=== PATIENT | female | born 1955 | race Two or more races ===

== ENCOUNTER 2021-10-02 08:05 | Emergency (ER) | payer OTHER ==
[~2021-10-02] VITALS: Ht 160 cm; Wt 76.8 kg
[2021-10-02] MEDS ORDERED: LOSA50TA37 PO (08:38)
[2021-10-02] MEDS ORDERED: AMLO2.5T96 PO (08:38)
[2021-10-02] MEDS: LOSARTAN POTASSIUM 50 MG TABLET PO ONE (09:11)
[2021-10-02 09:33] LABS: CREATININE 9.06 mg/dL (0.60-1.30); POTASSIUM 4.2 mmol/L (3.5-5.1)
[2021-10-02 10:21] VITALS: BP 158/73
[2021-10-02] MEDS: AmLODIPine BESYLATE 5 MG TABLET PO ONE (10:25)
== END 2021-10-02 10:27 | disposition home or self-care (01) ==
LOC: EMS 08:06
DX: I12.0 Hypertensive chronic kidney disease with stage 5 chronic kidney disease or end stage renal disease (principal); E11.22 Type 2 diabetes mellitus with diabetic chronic kidney disease; N18.6 End stage renal disease; F41.9 Anxiety disorder, unspecified; Z99.2 Dependence on renal dialysis; Z79.899 Other long term (current) drug therapy
CPT/HCPCS: 80048; 99283